=== PATIENT | female | born 1960 | race Caucasian/White ===

== ENCOUNTER 2023-10-28 12:58 | Emergency (ER) | payer OTHER ==
--- NOTE | 2023-10-28 13:53 | RAD REPORT ---
EXAM DESCRIPTION: RAD - Chest Single View - 10/28/2023 1:47 pm CLINICAL HISTORY: left side posterior lower rib pain Chest pain. COMPARISON: <Comparisons> FINDINGS: Portable technique limits examination quality. The lungs are grossly clear. The heart is normal in size. No displaced fractures. IMPRESSION: No acute intrathoracic process suspected.
[2023-10-28] MEDS ORDERED: FENTANYL CITR 100 MCG/2 ML ONE ×2 (14:02→14:52)
[2023-10-28 14:10] LABS: Absolute Eosinophils 0.1 K/uL (0-0.5); Absolute Lymphocytes (CBC) 1.8 K/uL (0.7-4.9); Absolute Monocytes 0.4 K/uL (0.1-1.3); Absolute Neutrophil 4.9 K/uL (1.8-8.0); Basophils % 0.4 % (0-1.3); Eosinophils % 1.3 % (0-4.4); Hematocrit 37.7 % (36.0-45.0); Hemoglobin 12.7 g/dL (12.0-15.0); MCH 31.2 pg (27.0-35.0); MCHC 33.6 g/dL (32.0-36.0); MCV 92.7 fL (80-100); MPV 7.6 fL (7.6-11.3); Monocytes % 5.9 % (3.3-12.3); Neutrophils % 67.4 % (41.7-73.7); Nucleated Red Blood Cells % 0.2 % (0-0); Platelets 370 thou/uL (152-406); RBC Red Blood Cell Count 4.06 M/uL (3.86-4.86); Red Cell Distribution Width 14.6 % (12.1-15.2)
--- NOTE | 2023-10-28 14:18 | RAD REPORT ---
EXAM DESCRIPTION: CT - Chest Abd Pelvis Wo Con - 10/28/2023 2:01 pm CLINICAL HISTORY: Chest and abdomen pain. left lateral lower posterior rib pain COMPARISON: Chest Single View dated 10/28/2023 TECHNIQUE: A limited noncontrast study was performed. All CT scans are performed using dose optimization technique as appropriate and may include automated exposure control or mA/KV adjustment according to patient size. FINDINGS: The lungs are clear.No pleural or pericardial effusion.No intrathoracic adenopathy. The liver, spleen, pancreas, kidneys are within normal limits. Low-density bilateral adrenal masses a re likely adenomas. No bowel obstruction, free air, free fluid or abscess. Prominent stool is seen throughout the colon. The appendix is not identified as a discrete structure, however, no secondary findings of appendiciti s are identified. No pathologic lymphadenopathy in the abdomen or pelvis. Left posterior tenth rib shows a fracture. IMPRESSION: Left posterior tenth rib fracture, minimally displaced.No pneumothorax.
[2023-10-28 14:31] LABS: Albumin 3.4 g/dL (3.4-5.0); Albumin/Globulin Ratio 1.1 (1.1-1.8); Anion Gap 7.2 mEq/L (5.0-15.0); Bilirubin Direct 0.2 mg/dL (0-0.2); Bilirubin Indirect, Calculated 0.1 mg/dL (0.2-0.8); Bilirubin Total 0.3 mg/dL (0.2-1.0); Globulin 3.2 g/dL (2.3-3.5); Potassium 4.2 mEq/L (3.5-5.1); Protein, Total 6.6 g/dL (6.4-8.2); Troponin High Sensitivity 3.4 pg/mL (<58.9)
--- NOTE | 2023-10-28 14:49 | EDPHYS ---
Physician Documentation [facility] Name: Ashley Lizarraga Age: 63 yrs Sex: Female : 1960 Arrival Date: 10/28/2023 Time: 12:58 Bed 10 Private MD: ED Physician Skyler Gardner HPI: 10/27 13:33 This 63 yrs old Female presents to ER via Ambulatory with complaints of LEFT RIB PAIN. cp 13:33 The patient or guardian reports chest pain that is located primarily in the left lower cp lateral posterior chest wall. 13:33 Onset: this morning, upon awakening but reports fall 2 days ago. cp 13:33 The pain does not radiate. cp 13:33 Associated signs and symptoms: Pertinent negatives: cough, diaphoresis, lower extremity cp pain, lower extremity swelling, shortness of breath, syncope. The chest pain is described as waxing and waning. 13:33 Severity of pain: in the emergency department the pain is unchanged despite home cp interventions. Historical: - Allergies: 13:12 No Known Allergies; db - PMHx: 13:12 COLLAPSED LUNG; db - Immunization history:: Adult Immunizations unknown. - Infectious Disease History:: Denies. - Social history:: Smoking status: Patient reports the use of cigarette tobacco products, smokes one-half pack cigarettes per day. ROS: 13:35 Cardiovascular: Positive for chest pain, of the left lateral lower rib area, cp 13:35 Constitutional: HX per HPI cp 13:35 Respiratory: Negative for cough, shortness of breath, wheezing, 13:35 Abdomen/GI: Negative for abdominal pain, vomiting, diarrhea, constipation, 13:35 All other systems are negative, Exam: 13:40 Constitutional: The patient appears in no acute distress, alert, awake, cp non-diaphoretic, non-toxic, well developed, well nourished, uncomfortable, 13:40 Head/Face: Normocephalic, atraumatic. cp 13:40 Eyes: Periorbital structures: appear normal, Conjunctiva: normal, no exudate, no injection, Sclera: no appreciated abnormality, Lids and lashes: appear normal, bilaterally, 13:40 ENT: External ear(s): are unremarkable, Nose: is normal, Mouth: Lips: moist, Oral mucosa: moist, Posterior pharynx: Airway: no evidence of obstruction, patent, 13:40 Neck: C-spine: vertebral tenderness, is not appreciated, crepitus, is not appreciated, ROM/movement: pain, is not appreciated, limited range of motion, is not appreciated, 13:40 Chest/axilla: Inspection: normal, Palpation: crepitus, is not appreciated, tenderness, that is moderate, of the left lateral chest, 13:40 Cardiovascular: Rate: normal, Rhythm: regular, Edema: is not appreciated, JVD: is not appreciated, 13:40 Respiratory: the patient does not display signs of respiratory distress, Respirations: normal, no use of accessory muscles, no retractions, labored breathing, is not present, Breath sounds: are clear throughout, no decreased breath sounds, no stridor, no wheezing, 13:40 Abdomen/GI: Inspection: abdomen appears normal, Bowel sounds: active, all quadrants, Palpation: abdomen is soft and non-tender, in all quadrants, 13:55 ECG was reviewed by the Attending Physician. Vital Signs: 13:10 BP 134 / 78; Pulse 71; Resp 16; Temp 98.4(O); Pulse Ox 97% ; Weight 68.95 kg; Height 5 db ft. 5 in. ; Pain 10/10; 14:26 BP 128 / 74; Pulse 68; Resp 16; Pulse Ox 98% ; ko1 14:59 BP 132 / 70; Pulse 72; Resp 16; Pulse Ox 99% ; ko1 13:10 Body Mass Index 25.29 (68.95 kg, 165.1 cm) db 13:10 Pain Scale: Adult db MDM: 13:19 Patient medically screened. 14:00 Differential diagnosis: acute myocardial infarction, acute pericarditis, pleurisy, cp pneumonia, pneumothorax, stable angina, unstable angina, rib contusion, rib fracture. 14:48 Data reviewed: vital signs, nurses notes, lab test result(s), EKG, radiologic studies, cp CT scan, and as a result, I will discharge patient. 14:48 I considered the following discharge prescriptions or medication management in the emergency department Medications were administered in the Emergency Department. See MAR. Counseling: I had a detailed discussion with the patient and/or guardian regarding the historical points, exam findings, and any diagnostic results supporting the discharge/admit diagnosis, lab results, radiology results, the need for outpatient follow up, a family practitioner, to return to the emergency department if symptoms worsen or persist or if there are any questions or concerns that arise at home. Response to treatment: the patient's symptoms have markedly improved after treatment, and as a result, I will discharge patient. 10/27 13:26 Order name: Basic Metabolic Panel; Complete Time: 14:44 cp 10/27 14:45 Interpretation: Normal except: CL 109; GLUC 113. cp 10/27 13:26 Order name: CBC with Diff; Complete Time: 14:44 cp 10/27 13:26 Order name: LFT's; Complete Time: 14:44 cp 10/27 14:45 Interpretation: Normal except: AST 12; IBILI, CALC 0.1. cp 10/27 13:26 Order name: NT PRO-BNP; Complete Time: 14:44 cp 10/27 13:26 Order name: Troponin HS; Complete Time: 14:44 cp 10/27 13:26 Order name: XRAY Chest (1 view); Complete Time: 14:44 cp 10/27 13:31 Order name: CT Chest Abdomen Pelvis W/O Contrast; Complete Time: 14:44 cp 10/27 13:26 Order name: EKG; Complete Time: 13:26 cp 10/27 13:26 Order name: Cardiac monitoring; Complete Time: 13:43 cp 10/27 13:26 Order name: EKG - Nurse/Tech; Complete Time: 13:55 cp 10/27 13:26 Order name: IV Saline Lock; Complete Time: 13:55 cp 10/27 13:26 Order name: Labs collected and sent; Complete Time: 13:55 cp 10/27 13:26 Order name: O2 Per Protocol; Complete Time: 13:26 cp 10/27 13:26 Order name: O2 Sat Monitoring; Complete Time: 13:27 cp EC:55 Rate is 65 beats/min. Rhythm is regular. OH interval is normal. QRS interval is normal. cp QT interval is normal. T waves are Inverted in lead aVR. Interpreted by me. Reviewed by me. Administered Medications: 14:03 Drug: fentaNYL (PF) IVP 25 mcg IVP once Route: IVP; Site: right antecubital; ko1 14:18 Follow up: Response: No adverse reaction; Pain is decreased ko1 14:57 Drug: fentaNYL (PF) IVP 25 mcg IVP once Route: IVP; Site: right antecubital; ko1 15:10 Follow up: Response: No adverse reaction; Pain is decreased ko1 14:57 Drug: Methocarbamol PO 500 mg PO once Route: PO; ko1 15:10 Follow up: Response: No adverse reaction; Medication administered at discharge. ko1 Disposition Summary: 10/28/23 14:49 Discharge Ordered Notes: Location: Home cp Problem: new cp Symptoms: have improved cp Condition: Stable cp Diagnosis - Fracture of one rib, left side cp Followup: cp - With: Private Physician - When: 2 - 3 days - Reason: Recheck today's complaints Discharge Instructions: - Discharge Summary Sheet cp - Rib Fracture cp Forms: - Medication Reconciliation Form cp - Antibiotic Education cp - Prescription Opioid Use cp - Patient Portal Instructions cp - Leadership Thank You Letter cp Prescriptions: - Naprosyn 500 mg Oral tablet - take 1 tablet ORAL route 2 times per day take with food; 20 tablet; Refills: 0, cp Product Selection Permitted - Tramadol 50 mg Oral Tablet - take 1 tablet ORAL route every 8 hours as needed; 12 tablet; Refills: 0, cp Product Selection Permitted - methocarbamol 750 mg Oral tablet - take 1 tablet ORAL route 3 times per day; 30 tablet; Refills: 0, Product cp Selection Permitted Addendum: 10/31/2023 07:39 Co-signature as Attending Physician, Skyler Gardner MD I agree with the assessment and c graves plan of care. Signatures: Dispatcher [employer] Skyler Hernandez MD MD cha Page, Corey, PA PA cp Day Combs RN RN ko1 Lorena Velazquez RN RN db Corrections: (The following items were deleted from the chart) 10/28 13:27 10/27 13:33 Onset: this morning, upon awakening, cp cp
--- NOTE | 2023-10-28 14:49 | ER ---
Nurse's Notes [facility] Name: Ashley Lizarraga Age: 63 yrs Sex: Female : 1960 Arrival Date: 10/28/2023 Time: 12:58 Bed 10 Private MD: Diagnosis: Fracture of one rib, left side Presentation: 10/27 13:10 Chief complaint: Patient states: LEFT RIB PAIN STATES WOKE UP WITH PAIN. STATES TOOK db IBUPROFEN AND FLEXERIL THAT DID NOT HELP. Coronavirus screen: Client denies travel out of the [place] in the last 14 days. At this time, the client does not indicate any symptoms associated with coronavirus-19. Ebola Screen: Patient negative for fever greater than or equal to 101.5 degrees Fahrenheit, and additional compatible Ebola Virus Disease symptoms Patient denies exposure to infectious person. Patient denies travel to an Ebola-affected area in the 21 days before illness onset. No symptoms or risks identified at this time. Initial Sepsis Screen: Does the patient meet any 2 criteria? No. Patient's initial sepsis screen is negative. Does the patient have a suspected source of infection? No. Patient's initial sepsis screen is negative. Risk Assessment: Do you want to hurt yourself or someone else? Patient reports no desire to harm self or others. Onset of symptoms was October 28, 2023. 13:10 Method Of Arrival: Ambulatory db 13:10 Acuity: LORE 3 db Triage Assessment: 13:13 General: Appears in no apparent distress. uncomfortable, Behavior is calm, cooperative. db Pain: Complains of pain in LEFT RIBS. Neuro: Level of Consciousness is awake, alert, obeys commands, Oriented to person, place, time, situation. Historical: - Allergies: 13:12 No Known Allergies; db - PMHx: 13:12 COLLAPSED LUNG; db - Immunization history:: Adult Immunizations unknown. - Infectious Disease History:: Denies. - Social history:: Smoking status: Patient reports the use of cigarette tobacco products, smokes one-half pack cigarettes per day. Screenin:[address] [facility] ED Fall Risk Assessment (Adult) History of falling in the last 3 months, ko1 including since admission No falls in past 3 months (0 pts) Confusion or Disorientation No (0 pts) Intoxicated or Sedated No (0 pts) Impaired Gait No (0 pts) Mobility Assist Device Used No (0 pt) Altered Elimination No (0 pt) Score/Fall Risk Level 0 - 2 = Low Risk Oriented to surroundings, Maintained a safe environment, Educated pt \T\ family on fall prevention, incl call for assistance when getting out of bed, Assessed \T\ reinforced patient's understanding of fall precautions, Provided non-skid footwear, Hourly rounding (assess needs \T\ fall precautionary measures) done. Abuse screen: Denies threats or abuse. Denies injuries from another. Nutritional screening: No deficits noted. Tuberculosis screening: No symptoms or risk factors identified. Assessment: 13:50 General: Appears in no apparent distress. Behavior is calm, cooperative, appropriate ko1 for age. Pain: Complains of pain in left rib. Neuro: No deficits noted. Cardiovascular: No deficits noted. Respiratory: No deficits noted. GI: No deficits noted. : No deficits noted. EENT: No deficits noted. Derm: No deficits noted. Musculoskeletal: Reports pain in left rib area. Vital Signs: 13:10 BP 134 / 78; Pulse 71; Resp 16; Temp 98.4(O); Pulse Ox 97% ; Weight 68.95 kg; Height 5 db ft. 5 in. ; Pain 10/10; 14:26 BP 128 / 74; Pulse 68; Resp 16; Pulse Ox 98% ; ko1 14:59 BP 132 / 70; Pulse 72; Resp 16; Pulse Ox 99% ; ko1 13:10 Body Mass Index 25.29 (68.95 kg, 165.1 cm) db 13:10 Pain Scale: Adult db ED Course: 13:01 Patient arrived in ED. im 13:12 Triage completed. db 13:12 Arm band placed on right wrist. db 13:19 Skyler Castellanos PA is PHCP. cp 13:19 Skyler Gardner MD is Attending Physician. cp 13:22 Day Combs, SAMMY is Primary Nurse. ko1 13:48 XRAY Chest (1 view) In Process Unspecified. EDMS 13:50 Patient has correct armband on for positive identification. Bed in low position. Call ko1 light in reach. Side rails up X 1. Provided Education on: call light, meds, labs. Client placed on continuous cardiac and pulse oximetry monitoring. NIBP monitoring applied. potline monitor on. Door closed. Noise minimized. Lights dimmed. Warm blanket given. Pillow given. 13:50 No provider procedures requiring assistance completed. ko1 13:55 Basic Metabolic Panel Sent. ko1 13:55 CBC with Diff Sent. ko1 13:55 LFT's Sent. ko1 13:55 NT PRO-BNP Sent. ko1 13:55 Troponin HS Sent. ko1 13:55 Inserted saline lock: 20 gauge in right antecubital area, using aseptic technique. ko1 Blood collected. 14:02 CT Chest Abdomen Pelvis W/O Contrast In Process Unspecified. EDMS 14:59 IV discontinued, intact, bleeding controlled, No redness/swelling at site. Pressure ko1 dressing applied. Administered Medications: 14:03 Drug: fentaNYL (PF) IVP 25 mcg IVP once Route: IVP; Site: right antecubital; ko1 14:18 Follow up: Response: No adverse reaction; Pain is decreased ko1 14:57 Drug: fentaNYL (PF) IVP 25 mcg IVP once Route: IVP; Site: right antecubital; ko1 15:10 Follow up: Response: No adverse reaction; Pain is decreased ko1 14:57 Drug: Methocarbamol PO 500 mg PO once Route: PO; ko1 15:10 Follow up: Response: No adverse reaction; Medication administered at discharge. ko1 Medication: 13:50 VIS not applicable for this client. ko1 Outcome: 14:49 Discharge ordered by . juan luis 15:08 Discharged to home ambulatory, with family, ko1 15:08 Condition: stable 15:08 Discharge instructions given to patient, family, Instructed on discharge instructions, follow up and referral plans. medication usage, Demonstrated understanding of instructions, follow-up care, medications, Prescriptions given X 3, 15:09 Patient left the ED. ko1 Signatures: Dispatcher [employer] EDMS Skyler Castellanos PA PA cp Oliver, Kathy RN RN ko1 Lorena Velazquez, RN RN Odilia Lindsey Corrections: (The following items were deleted from the chart) 13:13 13:12 EKG completed in triage. Results shown to MD. bin steward
[2023-10-28] MEDS ORDERED: methocarbamoL 500 MG TAB ONE (14:51)
[2023-10-28 15:26] VITALS: BP 132/70; TEMP 98.4; O2SAT 99
--- NOTE | 2023-11-01 10:36 | EKG ---
Test Date: 2023-10-28 Test Time: 13:49:49 Retail Manager: IRENE MEASUREMENT RESULTS: Intervals: Rate: 64 DC: 128 QRSD: 72 QT: 396 QTc: 408 [place]: P: DC: 128 QRS: 142 T: 147 INTERPRETIVE STATEMENTS: Normal sinus rhythm Left posterior fascicular block Nonspecific ST abnormality Abnormal ECG No previous ECG available for comparison Electronically Signed On 11-01-23 10:35:18 CDT by Lobito Gatica
== END 2023-10-28 15:09 | disposition home or self-care (01) ==
LOC: ER 12:58
DX: S22.32XA Fracture of one rib, left side, initial encounter for closed fracture (principal); F17.210 Nicotine dependence, cigarettes, uncomplicated
CPT/HCPCS: 93005; 85025; 80048; 36415; 80076; 84484; 83880; 71250; 74176; 71045; 96374; 99285; J3010 ×2